=== PATIENT | female | born 1955 | race Caucasian/White ===

== ENCOUNTER → 2018-07-04 | Outpatient (CLI) | payer BC | LOC: MC.RAD 14:40 | DX: Z12.31 Encounter for screening mammogram for malignant neoplasm of breast (principal); N63.11 Unspecified lump in the right breast, upper outer quadrant; R92.1 Mammographic calcification found on diagnostic imaging of breast ==

== ENCOUNTER → 2018-07-09 | Outpatient (CLI) | payer BC | LOC: MC.RAD 13:47 | DX: N60.01 Solitary cyst of right breast (principal); N63.10 Unspecified lump in the right breast, unspecified quadrant; R92.0 Mammographic microcalcification found on diagnostic imaging of breast ==

== ENCOUNTER 2022-02-28 19:49 | Emergency (ER) | payer MEDICARE, OTHER ==
[~2022-02-28] VITALS: Ht 165.1 cm; Wt 67.7 kg
[2022-02-28 20:04] VITALS: TEMP 98.6
[2022-02-28 20:40] LABS: BASO # 0.1 K/mm3 (0.0-0.2); BASO % 0.8 % (0.0-2.0); EOS # 0.8 K/mm3 (0.0-0.7); EOS % 7.1 % (0.0-4.0); GRAN # 7.2 K/mm3 (1.4-6.5); GRAN % 63.3 % (42.2-75.2); HEMATOCRIT 40.3 % (37.0-47.0); HEMOGLOBIN 14.1 g/dl (12.5-16.0); LYMPH # 2.5 K/mm3 (1.2-3.4); LYMPH % 21.8 % (20.0-51.0); MEAN CELL VOLUME 87 fl (80.0-100.0); MEAN CORPUSCULAR HEMOGLOBIN 30 pg (27-31); MEAN CORPUSCULAR HGB CONC 35 g/dl (33.0-37.0); MEAN PLATELET VOLUME 10.1 fl (7.4-10.4); MONO # 0.8 K/mm3 (0.1-0.6); MONO % 6.6 % (1.7-9.3); PLATELET COUNT 284 K/mm3 (130-400); RED BLOOD COUNT 4.65 M/mm3 (4.10-5.30); REDCELL DISTRIBUTION WIDTH-CV 13.3 % (11.5-14.5)
[2022-02-28 21:20] LABS: BILIRUBIN,TOTAL 0.3 mg/dL (0.2-1.2); C-REACTIVE PROTEIN 0.85 mg/dL (0.00-0.50); CALCIUM 9.7 mg/dL (8.4-10.2); CREATININE, serum 0.83 mg/dL (0.57-1.11); POTASSIUM 3.8 mmol/L (3.5-4.5)
[2022-02-28] MEDS ORDERED: PREDNISONE20 MG PO (21:29)
[2022-02-28] MEDS ORDERED: DOXYCYCLINE 10100 MG PO (21:29)
[2022-02-28 22:25] VITALS: BP 134/78; PULSE 99
== END 2022-02-28 22:26 | disposition home or self-care (01) ==
LOC: COL.ER 19:49
PROVIDERS: Emergency Medicine
DX: J40 Bronchitis, not specified as acute or chronic (principal); Z20.822 Contact with and (suspected) exposure to COVID-19; Z28.310 Unvaccinated for COVID-19
CPT/HCPCS: J2930; J7030; J7512

== ENCOUNTER 2022-09-05 23:05 | Emergency (ER) | payer MEDICARE, OTHER ==
[~2022-09-05] VITALS: Ht 165.1 cm; Wt 63.6 kg
[~2022-09-05 23:05] MED LIST: 00186-0372-20 IH; DOXYCYCLINE 10100 MG PO; MONODOX100 PO; PREDNISONE20 MG PO; SPIRIVA RE2.5 MCG/Ac IH; VENTOLIN0.09 MG IH
[2022-09-06] MEDS ORDERED: NORCO 325 MG-51 TAB PO (03:18)
[2022-09-06] MEDS ORDERED: FLEXERIL 1010 MG/TAB PO (03:24)
[2022-09-06 04:02] VITALS: BP 134/79; PULSE 73
== END 2022-09-06 04:05 | disposition home or self-care (01) ==
LOC: COL.ER 23:05
DX: M54.50 Low back pain, unspecified (principal); M53.3 Sacrococcygeal disorders, not elsewhere classified; Z88.5 Allergy status to narcotic agent; Z28.310 Unvaccinated for COVID-19
CPT/HCPCS: J1170; J1790; J1885